=== PATIENT | male | born 1995 | race African-American/Black ===

== ENCOUNTER 2016-09-06 22:55 | Emergency (ER) | payer MEDICAID ==
[~2016-09-06] VITALS: Ht 182.9 cm; Wt 81.6 kg
[2016-09-07 00:25] VITALS: BP 125/68
[2016-09-07] MEDS ORDERED: SODIUM CHLORIDE 0.9% 1,000 ML IV ONE (01:00)
== END 2016-09-07 03:02 | disposition home or self-care (01) ==
LOC: ER 22:58
DX: R55 Syncope and collapse (principal); R51 Headache
CPT/HCPCS: 70450; 80307; 82962; 96360; 99285; J7030

== ENCOUNTER 2020-08-06 09:48 | Emergency (ER) | payer MEDICAID, OTHER ==
[~2020-08-06] VITALS: Ht 182.9 cm; Wt 90.7 kg
[2020-08-06 10:20] VITALS: BP 126/69
[2020-08-06] MEDS ORDERED: methylPREDNISolone SOD SUCC 125 MG/2 ML VL IM ONE (11:00)
[2020-08-06] MEDS ORDERED: cefTRIAXone SOD 1,000 MG VL IM ONE (11:00)
== END 2020-08-06 11:18 | disposition home or self-care (01) ==
LOC: ER 09:48
DX: J03.90 Acute tonsillitis, unspecified (principal); Z20.822 Contact with and (suspected) exposure to COVID-19
CPT/HCPCS: 36415; 87426; 96372; 99284; J0696; J2930